=== PATIENT | male | born 1945 | race Two or more races ===

== ENCOUNTER 2021-08-26 12:57 | Emergency (ER) | payer MEDICARE, MEDICAID ==
[~2021-08-26] VITALS: Ht 172.7 cm; Wt 76.0 kg
[2021-08-26] MEDS ORDERED: ONDANSETRON PF 4 MG/2 ML VIAL. IVP ONE ×2 (14:15→15:00)
[2021-08-26 14:35] LABS: BASO % 1 % (0-3); EOS # 0.1 x10^3/uL (0.0-0.7); EOS % 1 % (0-3); HEMATOCRIT 36.8 % (39.0-53.0); HEMOGLOBIN 11.9 g/dL (13.0-17.5); LYMPH # 1.9 x10^3/uL (1.0-4.8); LYMPH % 28 % (24-48); MEAN CORPUSCULAR HEMOGLOBIN 28 pg (25-35); MEAN CORPUSCULAR HGB CONC 32 g/dL (31-37); MEAN CORPUSCULAR VOLUME 85 fL (79-100); MONO # 0.6 x10^3/uL (0.0-1.1); MONO % 9 % (0-9); NEUT # 4.1 x10^3/uL (1.8-7.7); NEUT % 61 % (31-73); PLATELET COUNT 258 x10^3/uL (140-400); RED BLOOD COUNT 4.32 x10^6/uL (4.30-5.70); RED CELL DISTRIBUTION WIDTH 14.9 % (11.5-14.5); WHITE BLOOD COUNT 6.7 x10^3/uL (4.0-11.0)
--- NOTE | 2021-08-26 14:42 | RAD ---
Single view chest dated 08/26/2021 2:37 PM: COMPARISON: None Clinical Indication: Weakness. Findings: Single upright portable exam of the chest was performed. Heart and mediastinal contours are within no rmal limits. There are some prominent perihilar linear markings, nonspecific. No consolidation or ple ural effusion. No pneumothorax. IMPRESSION: No acute radiographic abnormality. Electronically signed by: Jairon Rodas MD (08/26/2021 2:40 PM) KEREN
[2021-08-26 14:50] LABS: CALCIUM 8.6 mg/dL (8.5-10.1); CREATININE 1.2 mg/dL (0.7-1.3); GFR 59.3; POTASSIUM 4.6 mmol/L (3.5-5.1)
[2021-08-26 14:50] LABS: CLARITY,URINE CLEAR; COLOR,URINE YELLOW
[2021-08-26 14:51] LABS: BILIRUBIN,URINE NEGATIVE (NEG); HYALINE CASTS, URINE MANY /HPF; NITRITE,URINE NEGATIVE (NEG); PROTEIN,URINE NEGATIVE (NEG-TRACE); UROBILINOGEN,URINE 0.2 mg/dL (0.2 mg/dL)
[2021-08-26 14:52] LABS: BACTERIA,URINE 0 /HPF (0-FEW)
[2021-08-26 14:54] LABS: ALBUMIN 3.9 g/dL (3.4-5.0); MAGNESIUM 1.4 mg/dL (1.8-2.4); TOTAL BILIRUBIN 0.6 mg/dL (0.2-1.0); TOTAL PROTEIN 7.8 g/dL (6.4-8.2)
[2021-08-26] MEDS ORDERED: IV NORMAL SALINE 1000ML BAG 1,000 ML IV ONE (15:00)
[2021-08-26 15:19] LABS: BARBITURATES NEG (NEG); BENZODIAZEPINES NEG (NEG); CANNABINOIDS NEG (NEG); COCAINE NEG (NEG); METHADONE NEG (NEG); OPIATES NEG (NEG); PHENCYCLIDINE NEG (NEG)
[2021-08-26 15:28] LABS: AMPHETAMINE/METHAMPHETAMINE NEG (NEG)
[2021-08-26 15:37] LABS: INFLUENZA A PATIENT NEGATIVE (NEGATIVE); INFLUENZA B PATIENT NEGATIVE (NEGATIVE)
--- NOTE | 2021-08-26 15:49 | PHYS DOC ---
Past Medical History Past Medical History: Diabetes-Type II Past Surgical History: No Surgical History Smoking Status: Never Smoker Alcohol Use: None Drug Use: None General Adult EDM: Chief Complaint: WEAKNESS/GENERALIZED HPI: HPI: 75-year-old male past medical history of diabetes and hypertension, presents the ED with his son, (patient consents to his/her/their knowledge and involvement in pts' medical care), complains of fatigue, body aches for the past 4 days and vomited once this morning. Denies any associated chest pain, shortness of breath or cough. Has received his Covid vaccination and has no prior history of COVID. No known sick contacts. Patient is Korean-speaking and son agrees for interpretation, pallet assembler services was declined. While in emergency department patient did spike a fever. Patient is asking for recommendations for [id number] vitamins. States he has a primary care physician but cannot recall if vitamin levels have been drawn. Review of Systems: Review of Systems: Constitutional: Denies fever or chills. [] Eyes: Denies change in visual acuity. [] HENT: Denies nasal congestion or sore throat. [] Respiratory: Denies cough or shortness of breath. [] Cardiovascular: Denies chest pain or edema. [] GI: Denies abdominal pain, nausea, vomiting, bloody stools or diarrhea. [] : Denies dysuria. [] Musculoskeletal: Denies back pain or joint pain. [] Integument: Denies rash. [] Neurologic: Denies headache, focal weakness or sensory changes. [] Endocrine: Denies polyuria or polydipsia. [] Lymphatic: Denies swollen glands. [] Psychiatric: Denies depression or anxiety. [] Heart Score: C/O Chest Pain: No Risk Factors: Risk Factors: DM, Current or recent (<one month) smoker, HTN, HLP, family history of CAD, obesity. Risk Scores: Score 0 - 3: 2.5% MACE over next 6 weeks - Discharge Home Score 4 - 6: 20.3% MACE over next 6 weeks - Admit for Clinical Observation Score 7 - 10: 72.7% MACE over next 6 weeks - Early Invasive Strategies Current Medications: Current Medications Medications (Trade) Dose Ordered Sig/Brii Start Time Stop Time Status Last Admin Dose Admin Ondansetron HCl (Zofran) 4 mg 1X ONCE 08/26/21 15:00 08/26/21 15:01 DC 08/26/21 15:04 4 MG Sodium Chloride 1,000 ml @ 1,000 mls/hr 1X ONCE 08/26/21 15:00 08/26/21 15:59 08/26/21 15:04 1,000 MLS/HR Allergies: Allergies: Allergies Coded Allergies Type Severity Reaction Last Updated Verified No Known Drug Allergies 08/26/21 No Physical Exam: PE: Constitutional: Well developed, well nourished, no acute distress, non-toxic appearance. HENT: Normocephalic, atraumatic, dry mucous membranes Eyes: EOMI, conjunctiva normal, no discharge. Neck: Normal range of motion, supple, no nuchal rigidity or meningismus, no JVD Cardiovascular: S1/2 present, regular rhythm Lungs & Thorax: Speaking in full sentences, bilateral equal chest rise, no tachypnea or increased work of breathing Abdomen: soft, no tenderness, Skin: Warm, dry, no erythema, no rash. [] Extremities: No tenderness, no cyanosis, hemosiderin deposition in both legs Neurologic: Alert and oriented X 3, normal motor function, normal sensory function, no focal deficits noted, steady gait Psychologic: Affect normal, judgement normal, mood normal. [] Current Patient Data: Labs: Laboratory Tests Test 08/26/21 13:42 08/26/21 14:15 08/26/21 15:10 Urine Collection Type Unknown Urine Color Yellow Urine Clarity Clear Urine pH 6.0 (<5.0-8.0) Urine Specific [place] 1.025 (1.000-1.030) Urine Protein Negative mg/dL (NEG-TRACE) Urine Glucose (UA) Negative mg/dL (NEG) Urine Ketones (Stick) 15 mg/dL (NEG) Urine Blood Negative (NEG) Urine Nitrite Negative (NEG) Urine Bilirubin Negative (NEG) Urine Urobilinogen Dipstick 0.2 mg/dL (0.2 mg/dL) Urine Leukocyte Esterase Trace (NEG) Urine RBC 1-2 /HPF (0-2) Urine WBC 1-4 /HPF (0-4) Urine Squamous Epithelial Cells Mod /LPF Urine Bacteria 0 /HPF (0-FEW) Urine Hyaline Casts Many /HPF Urine Mucus Marked /LPF Urine Opiates Screen Neg (NEG) Urine Methadone Screen Neg (NEG) Urine Barbiturates Neg (NEG) Urine Phencyclidine Screen Neg (NEG) Urine Amphetamine/Methamphetamine Neg (NEG) Urine Benzodiazepines Screen Neg (NEG) Urine Cocaine Screen Neg (NEG) Urine Cannabinoids Screen Neg (NEG) Urine Ethyl Alcohol Neg (NEG) White Blood Count 6.7 x10^3/uL (4.0-11.0) Red Blood Count 4.32 x10^6/uL (4.30-5.70) Hemoglobin 11.9 g/dL (13.0-17.5) L Hematocrit 36.8 % (39.0-53.0) L Mean Corpuscular Volume 85 fL (79-100) Mean Corpuscular Hemoglobin 28 pg (25-35) Mean Corpuscular Hemoglobin Concent 32 g/dL (31-37) Red Cell Distribution Width 14.9 % (11.5-14.5) H Platelet Count 258 x10^3/uL (140-400) Neutrophils (%) (Auto) 61 % (31-73) Lymphocytes (%) (Auto) 28 % (24-48) Monocytes (%) (Auto) 9 % (0-9) Eosinophils (%) (Auto) 1 % (0-3) Basophils (%) (Auto) 1 % (0-3) Neutrophils # (Auto) 4.1 x10^3/uL (1.8-7.7) Lymphocytes # (Auto) 1.9 x10^3/uL (1.0-4.8) Monocytes # (Auto) 0.6 x10^3/uL (0.0-1.1) Eosinophils # (Auto) 0.1 x10^3/uL (0.0-0.7) Basophils # (Auto) 0.0 x10^3/uL (0.0-0.2) Sodium Level 139 mmol/L (136-145) Potassium Level 4.6 mmol/L (3.5-5.1) Chloride Level 100 mmol/L (98-107) Carbon Dioxide Level 26 mmol/L (21-32) Anion Gap 13 (6-14) Blood Urea Nitrogen 28 mg/dL (8-26) H Creatinine 1.2 mg/dL (0.7-1.3) Estimated GFR (Cockcroft-Gault) 59.3 BUN/Creatinine Ratio 23 (6-20) H Glucose Level 118 mg/dL (70-99) H Calcium Level 8.6 mg/dL (8.5-10.1) Magnesium Level 1.4 mg/dL (1.8-2.4) L Total Bilirubin 0.6 mg/dL (0.2-1.0) Aspartate Amino Transferase (AST) 21 U/L (15-37) Alanine Aminotransferase (ALT) 15 U/L (16-63) L Alkaline Phosphatase 51 U/L (46-116) Troponin I High Sensitivity 6 ng/L (4-75) JK-Cec-B-Type Natriuretic Peptide 291 pg/mL (0-124) H Total Protein 7.8 g/dL (6.4-8.2) Albumin 3.9 g/dL (3.4-5.0) Albumin/Globulin Ratio 1.0 (1.0-1.7) Lipase 125 U/L (73-393) Influenza Type A Antigen Negative (NEGATIVE) Influenza Type B Antigen Negative (NEGATIVE) SARS-CoV-2 Antigen (Rapid) Negative (NEGATIVE) Laboratory Tests 08/26/21 14:15 Laboratory Tests 08/26/21 14:15 Vital Signs: Vital Signs Date Time Temp Pulse Resp B/P (MAP) Pulse Ox O2 Delivery O2 Flow Rate FiO2 08/26/21 14:35 80 111/66 (81) 99 Room Air 08/26/21 13:20 100.8 16 100.8 EKG: EKG: Sinus rhythm 84 bpm, left axis deviation, normal intervals, no T wave inversion, no ST elevation or ST depression, no active chest Radiology/Procedures: Radiology/Procedures: IMAGING REPORT Signed PATIENT: YUMIKO LAU ACCOUNT: [id number] : 1945 LOCATION: ER AGE: 75 SEX: M EXAM STATUS: REG ER ORD. PHYSICIAN: DOMINIQUE MURO DO REASON: n/v weakness PROCEDURE: PORTABLE CHEST 1V Single view chest dated 08/26/2021 2:37 PM: COMPARISON: None Clinical Indication: Weakness. Findings: Single upright portable exam of the chest was performed. Heart and mediastinal contours are within normal limits. There are some prominent perihilar linear markings, nonspecific. No consolidation or pleural effusion. No pneumothorax. IMPRESSION: No acute radiographic abnormality. Electronically signed by: Ramesh Rdoas MD (08/26/2021 2:40 PM) [facility] DICTATED and SIGNED BY: RAMESH RODAS MD DATE: 08/26/21 [id number] IMAGING REPORT Signed PATIENT: YUMIKO LAU ACCOUNT: [id number] : 1945 LOCATION: ER AGE: 75 SEX: M EXAM STATUS: REG ER ORD. PHYSICIAN: DOMINIQUE MURO DO REASON: fever PROCEDURE: CT HEAD WO CONTRAST Exam: CT head INDICATION: Fever TECHNIQUE: Sequential axial images through the head were obtained without the administration of IV contrast. Exposure: One or more of the following in the visualized dose reduction techniques were utilized for this examination: 1. Automated exposure control 2. Adjustment of the MA and/or KV according to patient size 3. Use of iterative of reconstructive technique Comparisons: None FINDINGS: No focal parenchymal lesion or hemorrhage is identified. There is no midline shift or sulcal effacement. Moderate patchy evidence in periventricular white matter. No acute vascular territory infarction is identified. Rios-white distinction is preserved. The ventricular system is within normal limits without compression hydrocephalus. The basal cisterns are well maintained. The visualized portions of the paranasal sinuses and mastoid air cells are well- pneumatized. No acute fractures. IMPRESSION: Moderate small vessel schema change, technically age indeterminate without recent prior imaging. Electronically signed by: Sera Castro MD (08/26/2021 4:19 PM) [facility] DICTATED and SIGNED BY: SERA CASTRO MD DATE: 08/26/21 [id number] 0 Course & Med Decision Making: Course & Med Decision Making Pertinent Labs and Imaging studies reviewed. (See chart for details) Concern for fever, one episode of vomiting and generalized weakness, treated with IV fluids antiemetics in emergency department. Chest screen unremarkable. Urinalysis with no bacteria. Patient does not meet sepsis criteria. Patient tolerating oral fluids on reevaluation and repeat temperature is 99.6 I suspect viral process despite negative Covid and influenza testing. Magnesiusm low - replaced in ed. Will discharge home with strict ED return precautions were given for worsening fever, confusion, syncope, chest pain or neurologic deficit. Encouraged urgent outpatient follow-up with PMD for reevaluation. Life- threatening processes were considered but are low suspicion at this time, given history, physical exam and ED workup. Pt was educated on all prescription medications and adverse effects. All patient's questions were answered and pt was stable at time of discharge. Life/limb-threatening differential includes but is not limited to, acute coronary syndrome/myocardial infarction, Boerhaave's, DKA, gastrointestinal bleeding, intracranial hemorrhage, ischemic bowel, meningitis, sepsis, surgical abdomen (AAA), toxidrome (drug over/overdose/carbon monoxide, etc), ovarian/testicular torsion, trauma, or infection/sepsis. I have spoken with the patient and/or caregivers. I explained the patient's condition, diagnoses and treatment plan based on the information available to me at this time. I have answered the patient and/or caregiver's questions and addressed any concerns. The patient and/or caregivers have a good understanding of patient's diagnosis, condition and treatment plan as can be expected at this point. Vital signs have been stable. Patient's condition is stable and appropriate for discharge from the emergency department. Patient will pursue further outpatient evaluation with primary care physician or other designated or consulting physician as outlined in the discharge instructions. The patient and/or caregivers are agreeable to this plan of care and follow-up instructions have been explained in detail. The patient and/or caregivers have received these instructions in written form and have expressed an understanding of the discharge instructions. The patient and/or caregivers are aware that any significant change of condition or worsening of symptoms should prompt immediate return to this or the closest emergency department or call to 911. Kathy Disclaimer: Kathy Disclaimer: This electronic medical record was generated, in whole or in part, using a voice recognition dictation system. Departure Departure Impression: Primary Impression: Weakness Additional Impressions: Hypomagnesemia Fever Vomiting Disposition: HOME / SELF CARE / HOMELESS Condition: STABLE Referrals: UNKNOWN PCP NAME (PCP) Makayla un seguimiento con thornton mdico de atencin primaria en 3 a 5 wren para aldo reevaluacin/recontrol de magnesio (era 1.4), considere controlar los niveles de vitaminas Patient Instructions: Fever, Adult, Nausea and Vomiting, Weakness Additional Instructions: INSTRUCCIONES GENERALES DE COLLIN DEL DEPARTAMENTO DE EMERGENCIA Ny por venir al Departamento de Emergencias (ED) de [facility] hoy y confiando en nosotros con thornton cuidado. Confiamos en que tuviste aldo experiencia positiva en nuestra Emergencia Departamento. Si desea hablar con la gerencia del departamento, puede llamar al Director al [phone]. ZAK INSTRUCCIONES DE SEGUIMIENTO SON LAS SIGUIENTES: 1. Tiene un mdico privado? Si no tiene un mdico privado, por favor pida laverne lista de recursos de mdicos o clnicas que pueden ayudarlo con la atencin de s eguimiento. 2. El Mdico de Urgencias healy interpretado zak radiografas. El especialista en dread X tambin revisarlos. Si hay un cambio en los hallazgos, se le notificar en 48 horas cuando al todo posible. 3. Se healy realizado aldo prueba de laboratorio o cultivo, se revisarn zak resultados y se le notificado si necesita un cambio en el tratamiento. INSTRUCCIONES E INFORMACIN ADICIONALES: 1. Thornton atencin hoy healy sido supervisada por un mdico especialmente capacitado en emergencias cuidado. Muchos problemas requieren ms de aldo evaluacin para un diagnstico completo y tratamiento. Le recomendamos que programe thornton misael de seguimiento segn lo recomendado para garantizar el tratamiento completo de thornton enfermedad o lesin. Si no puede obtener un seguimiento atencin y contina teniendo un problema, o si thornton condicin empeora, le recomendamos que volver al servicio de urgencias. 2. No podemos determinar thornton condicin de forma jones por telfono ni podemos carole buenos consejos mdicos por telfono. Por estas razones de seguridad, si llama para recibir atencin mdica consejo, le pediremos que venga al servicio de urgencias para aldo evaluacin adicional. 3. Si tiene alguna pregunta con respecto a estas instrucciones de collin, llame al ED al [phone]. INFORMACIN DE SEGURIDAD: En inters de la seguridad, el bienestar y la prevencin de lesiones; te animamos a que lleves tu cinturn de seguridad, si fuma; fumando bastante, y alentamos a la yoko a usar un balta protector para andar en bicicleta y otros eventos deportivos que presentan un mayor riesgo de lesiones en la jacky. SI ZAK SNTOMAS EMPEORAN O SE DESARROLLAN NUEVOS SNTOMAS, O SI TIENE PREOCUPACIONES SOBRE THORNTON CONDICIN; O SI THORNTON CONDICIN EMPEORA MIENTRAS ESPERA THORNTON MISAEL DE SEGUIMIENTO; CUALQUIERA COMUNQUESE CON THORNTON MDICO DE ATENCIN PRIMARIA, EL MDICO CUYO NOMBRE Y NMERO LE DIERON, O REGRESE AL ED INMEDIATAMENTE. Scripts Multivitamin (One-Daily Multi-Vitamin) 1 Each Tablet 1 TAB PO DAILY for 30 Days, #30 TAB 0 Refills Prov: DOMINIQUE MURO DO 08/26/21 Ondansetron (ONDANSETRON ODT) 4 Mg Tab.rapdis 1 TAB PO PRN Q6-8HRS, #20 TAB Prov: DOMINIQUE MURO DO 08/26/21 DOMINIQUE MURO DO Aug 26, 2021 15:49
[2021-08-26] MEDS ORDERED: ACETAMINOPHEN 325 MG TABLET. PO ONE (16:00)
[2021-08-26] MEDS ORDERED: MAGNESIUM OXIDE 400 MG TABLET PO ONE (16:00)
--- NOTE | 2021-08-26 16:03 | EKG ---
[facility] [address] [place] [address] Test Date: 2021-08-26 Test Time: 14:35:04 Pat Name: YUMIKO LAU Department: Room: Gender: M Gallery Host: : 1945 Requested By: DOMINIQUE MURO Order Number: [id number] Reading MD: Rell Weiss Measurements Intervals [place] Rate: 84 P: -21 IL: 186 QRS: -12 QRSD: 82 T: 50 QT: 336 QTc: 400 Interpretive Statements SINUS RHYTHM LEFTWARD AXIS Electronically Signed On 08-27-2021 17:40:57 PLATING TECHNICIAN by Rell Weiss
[2021-08-26 16:18] VITALS: BP 139/67
--- NOTE | 2021-08-26 16:22 | RAD ---
Exam: CT head INDICATION: Fever TECHNIQUE: Sequential axial images through the head were obtained without the administration of IV co ntrast. Exposure: One or more of the following in the visualized dose reduction techniques were utilized for this examination: 1. Automated exposure control 2. Adjustment of the MA and/or KV according to patient size 3. Use of iterative of reconstructive technique Comparisons: None FINDINGS: No focal parenchymal lesion or hemorrhage is identified. There is no midline shift or sulcal effaceme nt. Moderate patchy evidence in periventricular white matter. No acute vascular territory infarction is i dentified. Rios-white distinction is preserved. The ventricular system is within normal limits without compression hydrocephalus. The basal cisterns are well maintained. The visualized portions of the paranasal sinuses and mastoid air cells are well-pneumatized. No acute fractures. IMPRESSION: Moderate small vessel schema change, technically age indeterminate without recent prior imaging. Electronically signed by: Sera Hall MD (08/26/2021 4:19 PM) [facility]
[2021-08-26] MEDS ORDERED: ONDA4TAB12 PO (17:10)
[2021-08-26] MEDS ORDERED: MULT-735 PO (17:10)
--- NOTE | 2021-08-29 11:26 | NUR ---
IP: Attempted to contact pt concerning covid results. No answer, left a voicemail to return the call.
== END 2021-08-26 17:26 | disposition home or self-care (01) ==
LOC: ER 12:57
DX: R53.1 Weakness (principal); Z20.822 Contact with and (suspected) exposure to COVID-19; E83.42 Hypomagnesemia; R50.9 Fever, unspecified; R11.10 Vomiting, unspecified; E11.9 Type 2 diabetes mellitus without complications; I10 Essential (primary) hypertension
CPT/HCPCS: 36415; 70450; 71045; 80053; 80307; 81001; 83690; 83735; 83880; 84484; 85025; 87077; 87086; 87186; 87428; 93005; 96361; 96374; 96376; 99285; C9803; J2405; J7030; U0003

== ENCOUNTER 2021-09-20 09:13 | Emergency (ER) | payer MEDICARE, MEDICAID ==
[~2021-09-20] VITALS: Ht 172.7 cm; Wt 80.0 kg
[~2021-09-20 09:13] MED LIST: MULT-735 PO; ONDA4TAB12 PO
--- NOTE | 2021-09-20 10:29 | RAD ---
Supine abdomen. HISTORY: Constipation Supine views were taken of the abdomen. There is a fecal impaction at the rectum. There is increased stool throughout the colon. There is no small bowel obstruction. Visualized lung bases are clear. The re is hypertrophic and degenerative change in the lumbar spine. IMPRESSION: 1. Increased stool throughout the colon with fecal impaction at the rectum. Electronically signed by: Ilia Dupree MD (09/20/2021 10:26 AM) [facility]
[2021-09-20] MEDS ORDERED: POLY119P4 PO (11:10)
--- NOTE | 2021-09-20 11:12 | PHYS DOC ---
Past Medical History Past Medical History: Diabetes-Type II Past Surgical History: No Surgical History Smoking Status: Never Smoker Alcohol Use: None Drug Use: None General Adult EDM: Chief Complaint: CONSTIPATION HPI: HPI: Patient is a 75-year-old male who presents to the emergency department complaining of constipation for the past 3 days. Patient reports he has not had a bowel movement in 3 days, states he usually has a bowel movement every other day. Patient states he took 1 capful of MiraLAX yesterday without any relief. Patient denies taking any other medications, reports he drinks at least 1 to 2 glasses of water a day. Patient denies other health history, reports he does no t take other prescription medications at home. Does not currently have a primary care provider. Patient denies chest pains, nausea, vomiting, diarrhea, does report mild generalized abdominal discomfort that he rates at a 1 or 2 out of 10. Patient denies seeing blood in his stool. Denies increase urinary frequency, urinary pressure, hematuria or other dysuria. Patient denies sh ortness of breath, chest or nasal congestion. Patient denies recent fever or chills. Patient denies other physical complaints physical concerns. Review of Systems: Review of Systems: 14 body systems of review of systems have been reviewed. See HPI for pertinent positives and negative responses, otherwise all other systems are negative, nonpertinent or noncontributory. Constitutional: Negative except as outlined in HPI above. Skin: Negative except as outlined in HPI above. Eyes: Negative except as outlined in HPI above. HENT: Negative except as outlined in HPI above. Respiratory: Negative except as outlined in HPI above. Cardiovascular: Negative except as outlined in HPI above. GI: Negative except as outlined in HPI above. : Negative except as outlined in HPI above. Musculoskeletal: Negative except as outlined in HPI above. Integument: Negative except as outlined in HPI above. Neurologic: Negative except as outlined in HPI above. Endocrine: Negative except as outlined in HPI above. Lymphatic: Negative except as outlined in HPI above. Psychiatric: Negative except as outlined in HPI above. Heart Score: C/O Chest Pain: No Risk Factors: Risk Factors: DM, Current or recent (<one month) smoker, HTN, HLP, family history of CAD, obesity. Risk Scores: Score 0 - 3: 2.5% MACE over next 6 weeks - Discharge Home Score 4 - 6: 20.3% MACE over next 6 weeks - Admit for Clinical Observation Score 7 - 10: 72.7% MACE over next 6 weeks - Early Invasive Strategies Allergies: Allergies: Allergies Coded Allergies Type Severity Reaction Last Updated Verified No Known Drug Allergies 08/26/21 No Physical Exam: PE: Constitutional: Well developed, well nourished, no acute distress, non-toxic appearance. 75-year-old male in no apparent distress. HENT: Normocephalic, atraumatic. Eyes: Conjunctiva normal, no discharge. Neck: Normal range of motion, no stridor. Cardiovascular: No cyanosis appreciated, distal cap refill less than 2 seconds. Lungs & Thorax: Patient is in no respiratory distress, no audible adventitious lung sounds appreciated. Abdomen: Generalized nonspecific tenderness throughout all 4 quadrants of abdomen. Bowel sounds hypoactive. No masses, no megaly appreciated. No skin discoloration of the abdomen appreciated. No surgical scars present. Skin: Warm, dry, no erythema, no rash. Back: No tenderness, no deformities. Extremities: No tenderness, no cyanosis, no clubbing, ROM intact, no edema. Neurologic: Alert and oriented X 3, normal motor function, normal sensory function, no focal deficits noted. Psychologic: Affect normal, judgement normal, mood normal. Current Patient Data: Vital Signs: Vital Signs Date Time Temp Pulse Resp B/P (MAP) Pulse Ox O2 Delivery O2 Flow Rate FiO2 09/20/21 09:15 98.1 69 20 104/65 (78) 100 Room Air 98.1 EKG: EKG: [] Radiology/Procedures: Radiology/Procedures: REASON: constipation PROCEDURE: KUB Supine abdomen. HISTORY: Constipation Supine views were taken of the abdomen. There is a fecal impaction at the rectum. There is increased stool throughout the colon. There is no small bowel obstruction. Visualized lung bases are clear. There is hypertrophic and degenerative change in the lumbar spine. IMPRESSION: 1. Increased stool throughout the colon with fecal impaction at the rectum. Electronically signed by: Ilia Dupree MD (09/20/2021 10:26 AM) [facility] Course & Med Decision Making: Course & Med Decision Making Pertinent Labs and Imaging studies reviewed. (See chart for details) 75-year-old male, vital signs reviewed, presents to the emergency department c omplaining of constipation for the past 3 days. Physical examination consistent with constipation, will order KUB. KUB concerning for constipation with fecal impaction in rectum. Will prescribe magnesium citrate, discussed with patient magnesium citrate use, will prescribe MiraLAX for continual use to keep stool soft, will give glycerin suppository to soften stool at rectum prior to discharge. Discussed discharge planning with patient, strict follow-up with primary care soon, return to ER precautions and concerns were reviewed, patient gave verbal understanding of and is amenable to ED discharge planning. Patient is Georgian-speaking, used film developing machine operator phone service for all interactions with patient. [email or web address] Disclaimer: [email or web address] Disclaimer: This electronic medical record was generated, in whole or in part, using a voice recognition dictation system. Departure Departure Impression: Primary Impression: Constipation Qualified Codes: K59.00 - Constipation, unspecified Disposition: HOME / SELF CARE / HOMELESS Condition: GOOD Referrals: UNKNOWN PCP NAME (PCP) Patient Instructions: Constipation, Adult Additional Instructions: Lo vieron hoy en el departamento de emergencias por problemas de estreimiento. Penaloza examen fsico y la radiografa de penaloza abdomen mostraron que tiene aldo gran cantidad de heces en el intestino grueso. Bryan comentamos, le estoy recetando citrato de magnesio, veronica la mitad de la botella cuando regrese a casa, espere 12 horas y veronica el remberto de la botella. Tambin te estoy recetando MiraLAX que debes recoger en la farmacia. Le dieron un supositorio de glicerina. Llvese a casa e insrtelo en el recto para ayudar a ablandar las heces, ya que esto ayudar a aliviar los sntomas del estreimiento. Por favor aumente penaloza consumo de agua. [place] MiraLAX diariamente evelyne las prximas 2 semanas para ayudar a controlar los hbitos intestinales. He proporcionado aldo lista de proveedores de atencin primaria con los que puede realizar un seguimiento; elija un proveedor de atencin primaria para establecer atencin mdica ambulatoria. Regrese al departamento de emergencias si los sntomas empeoran u otras inquietudes. Ny por visitar nuestro Departamento de Emergencias. Fue un placer atenderlo hoy en el departamento de emergencias y le agradecemos que nos haya confiado penaloza atencin. Si surge algn problema adicional, no dude en volver a visitarnos. Makayla un seguimiento con penaloza proveedor de atencin primaria para que puedan planificar atencin adicional si es necesario y conocer el problema que tuvo. Si los sntomas empeoran, regrese al Departamento de Emergencias. Cualquier sntoma preocupante que comience, bryan dolor en el pecho, falta de aire, debilid ad o entumecimiento en un lado del cuerpo, fiebre ken o cualquier otro sntoma preocupante, regresa a la vipin de emergencias. You were seen today in the emergency department for concerns of constipation. Your physical examination and x-ray of your abdomen did show you have a large amount of stool in your large intestine. As we discussed I am prescribing you magnesium citrate, please drink one half of the bottle when you return home, wait 12 hours and drink the rest of the bottle. I am also prescribing you MiraLAX that you must cone picker at the pharmacy. You were given a glycerin suppository. Please take home with you and insert into rectum to help soften the stool as this will help relieve your constipation symptoms. Please increase your water consumption. Take MiraLAX daily for the next 2 weeks to help control bowel habits. I have provided a list of primary care providers for you to follow-up with, please choose a primary care provider to establish outpatient health care. Please return to the emergency department for worsening symptoms or other concerns. Thank you for visiting our Emergency Department. It was a pleasure taking care of you today in the emergency department and we appreciate you trusting us with your care. If any additional problems come up don't hesitate to return to visit us. Please follow up with your primary care provider so they can plan additional care if needed and know about the problem that you had. If symptoms worsen come back to the Emergency Department. Any concerning symptoms that start such as chest pain, shortness of air, weakness or numbness on one side of the body, running high fevers or any other concerning symptoms return to the ER. [facility] [address] [place] [address] [facility] [address] [place] [address] [facility] [address] [facility] [place] [address] [facility] [address] [place] [address] [facility] [address] [place] [address] [facility] [address] [place] [address] [facility] [address] [place] [address] [facility] [address] [place] [address] [facility] [address] [place] [address] [facility] [address] [place] [address] [employer] Polyethylene Glycol 3350 (MIRALAX) 119 Gm Powder 17 GM PO DAILY for constipation, #527 GM 0 Refills dissolve in water Prov: RAMESH PRESSLEY APRN 09/20/21 RAMESH PRESSLEY APRN Sep 20, 2021 11:12
[2021-09-20] MEDS ORDERED: BISACODYL 10 MG SUPP.RECT. PR ONE (11:15)
[2021-09-20] MEDS ORDERED: MAGNESIUM CITRATE 296 ML SOLUTION. PO ONE (11:15)
[2021-09-20] MEDS ORDERED: BISACODYL 10 MG SUPP.RECT. ONE (11:22)
[2021-09-20] MEDS ORDERED: MAGNESIUM CITRATE 296 ML SOLUTION. ONE (11:22)
[2021-09-20 11:33] VITALS: BP 116/71
== END 2021-09-20 11:38 | disposition home or self-care (01) ==
LOC: ER 09:13
DX: K59.00 Constipation, unspecified (principal); E11.9 Type 2 diabetes mellitus without complications
CPT/HCPCS: 74018; 99283